=== PATIENT | female | born 1975 | race Caucasian/White ===

== ENCOUNTER 2017-12-01 14:39 | Emergency (ER) | payer OTHER ==
[2017-12-01 18:13] LABS: WHITE BLOOD COUNT 7.6 10^3/ul (4.8-10.8)
[2017-12-01 18:13] LABS: ABNORMAL IP MESSAGE 1; HEMATOCRIT 28.2 % (37.0-47.0); MEAN CORPUSCULAR HEMOGLOBIN 19.6 pg (29.0-33.0); MEAN CORPUSCULAR HGB CONC 28.4 g/dl (32.0-37.0); MEAN CORPUSCULAR VOLUME 68.9 fl (82.0-101.0); MEAN PLATELET VOLUME 9.3 fl (7.4-10.4); PLATELET COUNT 660 10^3/UL (140-415); RED BLOOD COUNT 4.09 10^6/ul (4.20-5.40); RED CELL DISTRIBUTION WIDTH 18.7 % (11.5-14.5)
[2017-12-01 18:15] LABS: ADD MAN DIFF? YES; POSITIVE DIFF @See below
[2017-12-01 18:44] LABS: INR 1.01; PROTIME 13.4 Sec (11.9-14.9)
[2017-12-01 18:45] LABS: PARTIAL THROMBOPLASTIN TIME 26.5 Sec (25.0-35.0)
[2017-12-01 18:48] LABS: ANION GAP 11 (8-16); BLOOD UREA NITROGEN 7 mg/dl (7-20); CARBON DIOXIDE 27 mmol/L (21-31); CHLORIDE 108 mmol/L (97-110); CREATININE 0.57 mg/dl (0.44-1.00); GLUCOSE 110 mg/dl (70-220); SODIUM 142 mmol/L (135-144)
[2017-12-01 19:32] LABS: ANISOCYTOSIS 2+ (0-0); BASOPHILS % (M) 1 % (0-2); EOSINOPHILS % (M) 6 % (0-7); HYPOCHROMASIA 2+ (0-0); LYMPHOCYTES % (M) 27 % (15-51); MICROCYTOSIS 2+ (0-0); MONOCYTE #M 0.6 10^3/ul (0.3-0.9); MONOCYTES % (M) 8 % (0-11); OVALOCYTES 1+ (0-0); PLATELET ESTIMATE NORMAL; POIKILOCYTOSIS 1+ (0-0); SEGMENTED NEUTROPHILS (M) % 58 % (39-77); SMUDGE%M 1 % (0-0)
== END 2017-12-01 19:20 | disposition home or self-care (01) ==
LOC: E/R 14:39
DX: D50.9 Iron deficiency anemia, unspecified (principal)
CPT/HCPCS: 36415; 80048; 81025; 85025; 85610; 85730; 99283-25

== ENCOUNTER 2017-12-04 10:44 | Emergency (ER) | payer OTHER ==
[2017-12-04] MEDS: ONDANSETRON (ODT) 4 MG TAB ODT (13:21)
[2017-12-04 14:06] LABS: ADD MAN DIFF? NO
[2017-12-04 14:10] LABS: ABNORMAL IP MESSAGE 1; BASOPHIL # 0.1 10^3/ul (0.0-0.1); BASOPHILS % 0.7 % (0.0-2.0); EOSINOPHILS # 0.3 10^3/ul (0.0-0.5); EOSINOPHILS % 3.2 % (0.0-7.0); HEMATOCRIT 28.4 % (37.0-47.0); HEMOGLOBIN 8.1 g/dl (12.0-16.0); LYMPHOCYTES # 2.6 10^3/ul (0.8-2.9); LYMPHOCYTES % 30.2 % (15.0-51.0); MEAN CORPUSCULAR HEMOGLOBIN 19.5 pg (29.0-33.0); MEAN CORPUSCULAR HGB CONC 28.5 g/dl (32.0-37.0); MEAN CORPUSCULAR VOLUME 68.3 fl (82.0-101.0); MEAN PLATELET VOLUME 9.6 fl (7.4-10.4); MONOCYTE # 0.9 10^3/ul (0.3-0.9); NEUTROPHIL # 4.8 10^3/ul (1.6-7.5); NEUTROPHILS % 55.5 % (39.0-77.0); RED BLOOD COUNT 4.16 10^6/ul (4.20-5.40)
[2017-12-04 14:10] LABS: WHITE BLOOD COUNT 8.5 10^3/ul (4.8-10.8)
[2017-12-04 14:11] LABS: POSITIVE DIFF @See below
[2017-12-04 14:12] LABS: PLATELET COUNT 734 10^3/UL (140-415)
[2017-12-04 14:28] LABS: INR 0.98; PROTIME 13.1 Sec (11.9-14.9)
[2017-12-04 14:29] LABS: PARTIAL THROMBOPLASTIN TIME 25.9 Sec (25.0-35.0)
[2017-12-04 14:33] LABS: ALANINE AMINOTRANSFERASE 20 IU/L (13-69); ALBUMIN 3.9 g/dl (3.3-4.9); ALBUMIN/GLOBULIN RATIO 0.97; ALKALINE PHOSPHATASE 89 IU/L (42-121); ANION GAP 14 (8-16); ASPARTATE AMINO TRANSFERASE 19 IU/L (15-46); BILIRUBIN,INDIRECT 0.3 mg/dl (0-1.1); BILIRUBIN,TOTAL 0.3 mg/dl (0.2-1.3); BLOOD UREA NITROGEN 7 mg/dl (7-20); CARBON DIOXIDE 26 mmol/L (21-31); CHLORIDE 106 mmol/L (97-110); CREATININE 0.56 mg/dl (0.44-1.00); GLUCOSE 89 mg/dl (70-220); POTASSIUM 3.9 mmol/L (3.5-5.1); SODIUM 142 mmol/L (135-144); TOTAL PROTEIN 7.9 g/dl (6.1-8.1)
[2017-12-04 14:45] LABS: TROPONIN-I < 0.012 ng/ml (0.00-0.12)
[2017-12-04 15:37] LABS: OCCULT BLOOD STOOL NEGATIVE (NEGATIVE)
[2017-12-04 15:52] LABS: IMMEDIATE SPIN CROSSMATCH 1 2
[2017-12-04] MEDS: SOD CHLORIDE 0.9% 250 ML IV (16:19)
== END 2017-12-04 18:30 | disposition short-term general hospital (02) ==
LOC: E/R 10:44
PROVIDERS: Pediatrics Neonatal-Perinatal Medicine
DX: D64.9 Anemia, unspecified (principal); R11.2 Nausea with vomiting, unspecified; R10.9 Unspecified abdominal pain
CPT/HCPCS: 36415; 36430; 80053; 81025; 82270; 84484; 85025; 85610; 85730; 86850; 86900; 86901; 86920; 93005; 99291-25